=== PATIENT | female | born 1955 | race Caucasian/White ===

== ENCOUNTER → 2018-01-19 14:24 | Outpatient (CLI) | payer OTHER, SELFPAY ==
--- NOTE | 2018-01-19 14:28 | RAD_ITS ---
STUDY: X-RAY - LEFT HAND REASON FOR EXAM: Female, 63 years old. Pain TECHNIQUE: 3 view(s) of the hand. COMPARISON: None. FINDINGS: Normal radiocarpal articulation. Normal distal radioulnar joint. Normal visualized carpal bones. Normal carpal articulations Normal carpometacarpal articulation of the thumb. Normal second through fifth carpometacarpal joints. Normal metacarpi. Normal metacarpophalangeal joint of the thumb. Normal interphalangeal joint of the thumb. Normal proximal and distal phalanges of the thumb. Normal metacarpophalangeal joints of the second through fifth fingers. Normal proximal and distal interphalangeal joints of the second through fifth fingers. Normal phalanges of the second through fifth fingers. The soft tissue structures are unremarkable. RAD/Hand Min 3 Views IMPRESSION: Normal x-ray examination of the hand. Electronically Signed: Lito Waite MD at 21:19 EDT Tel , Service support ,
== END ==
PROVIDERS: Family Provider Family Medicine; PCP Family Medicine; Visit Provider Orthopaedic Surgery
DX: M79.645 Pain in left finger(s) (principal)
CPT/HCPCS: 73130

== ENCOUNTER 2018-04-28 07:47 | Day surgery (SDC) | payer OTHER, SELFPAY ==
[2018-04-28 08:25] VITALS: BP 134/69; PULSE 69; RESP 18; TEMP 36.6; O2SAT 99; BMI 25.4
[2018-04-28] MEDS: Cefazolin 2 GM in 0.9% Normal Saline 100 ML IV (09:18)
--- NOTE | 2018-04-28 09:26 | PCM.DC.ORTHO ---
Discharge Diet: No Restrictions - keep dressing clean and dry, if gets wet- may change/reinforce, follow up in 2 weeks for suture removal/dressing change, may use hand as tolerated Discharge Activity: May Not Drive May shower in (days): 1 Ice area for (Minutes): 20 - Every hour while awake. Weight Bearing Status: Weight bearing as tolerated Keep extremity elevated above heart level: Operative Extremity Call your doctor if your incision/area has: Continuous Slow Oozing, Sudden Increased Bleeding, Increased Pain/ Swelling, Increased Redness, Foul Smelling Discharge Call your doctor if you observe: Fever of 101 or Higher, Coldness, Increased Pain, Numbness or Tingling, Change in Color, Calf discomfort Allergies/Adverse Reactions: Allergies penicillin V Allergy (Verified 04/27/18 13:23) Swelling Sulfa (Sulfonamide Antibiotics) Allergy (Verified 04/27/18 13:23) Rash Medications to take at Discharge lactobacillus combination no.8 3 billion cell capsule 3,000 mmu cells PO QDAY 01/19/18 Multivitamin [Multiple Vitamins] 1 each PO DAILY 04/27/18 Acetaminophen/Codeine #3 [Tylenol #3 Tablet] 1 - 2 tablet PO Q6H PRN PRN 3 Days #14 tablet 04/28/18 The following prescriptions were given: Acetaminophen/Codeine #3 [Tylenol #3 Tablet] 1 - 2 tablet PO Q6H PRN PRN 3 Days #14 tablet PRN Reason: Pain Primary Care Physician: Max Parekh MD [Primary Care Provider] - Please Follow Up With: Rosi Reyes, - [phone]
--- NOTE | 2018-04-28 09:27 | PCM.OPRPT ---
Report of Operation Date of Procedure: 04/28/18 Pre-Operative Diagnosis: left thumb and middle finger trigger fingers Post-Operative Diagnosis: same Surgery/Procedure Performed:: left thumb and middle finger A1 gabe releases Anesthesiologist: Jaydon Patel Estimated Blood Loss (mL): none Fluids Replaced: 400ml lr Description of Procedure: Preop note Patient is a 63-year-old female with continued locking and triggering of her thumb and middle finger. Patient is failed conservative treatment triggering is worse like patient elected to proceed with left thumb and middle A1 gabe release. Risks benefits and alternatives surgery discussed with patient. Risks including but not limited to blood loss, blood clot, infection, neurovascular injury, failure procedure, loss of life and loss of limb. Patient is aware like proceed with left A1 gabe release of the middle and thumb. Operative note Patient seen and examined preoperative holding area. Left thumb and middle finger were marked. Patient brought to the operating room please placed supine on the operating table. Signing, anesthesia, antibiotics were administered. The left arm was prepped and draped after [place] block was initiated. We marked out her incisions for her thumb and middle finger. Gabe release. Timeout was performed. We then used a 15 blade cut through the skin at the crease of the MP joint of the thumb. We were careful to protect all neurovascular structures were able to then dissect down with tenotomy syllable of the A1 gabe this is released and the tendon was brought out of the wound of the thumb was flexed and extended to ensure no further triggering which was there was not. We then moved to the middle finger we then again made our incision which is a vertical incision over the MP joint and the level of the A1 gabe. Dissected down with tenotomy syllable of the A1 gabe gabe was released with a 15 blade and tenotomies we then brought the end tendon out of the incision and flex and extend at the middle finger to ensure there is no triggering which there was no further triggering. We irrigated the incision with copious amounts of sterile saline. The incisions were closed with interrupted 4-0 nylon stitches sterile dressings were applied. The patient tourniquet was deflated for total working time of 20 minutes. The patient tolerated procedure well there are no complications patient was transferred to the recovery room in stable condition. Postoperative note Use left hand as tolerated next Pharmacy has Tylenol prescription If incision gets wet may reinforce dressing as Follow-up in 2 weeks for suture removal Call with concerns as Dragon disclaimer This note was generated with [employer] dictation software. It may contain incorrect words, spelling, and punctuation that were not noted in checking the note before signing.
[2018-04-28] MEDS: Mupirocin Ointment 22gm Tube 1 APPLIC (09:53)
[2018-04-28 10:08] VITALS: BP 105/65; BP 134/69; PULSE 70; RESP 16; TEMP 36.4; O2SAT 98
[2018-04-28 10:15] VITALS: BP 113/70; BP 134/69; PULSE 75; RESP 16; O2SAT 98
[2018-04-28 10:20] VITALS: BP 121/79; BP 134/69; PULSE 78; RESP 14; O2SAT 100
[2018-04-28 10:25] VITALS: BP 116/81; BP 134/69; PULSE 68; RESP 16; TEMP 36.5; O2SAT 98
[2018-04-28 11:09] VITALS: BP 134/69
== END 2018-04-28 11:19 | disposition home or self-care (01) ==
LOC: SDC 07:48 → AC 07:50
PROVIDERS: Family Provider Family Medicine; PCP Family Medicine; Visit Provider Orthopaedic Surgery
PROC: (CPT 26055; principal; 2018-04-28 09:00)
DX: M65.332 Trigger finger, left middle finger (principal); M65.312 Trigger thumb, left thumb
CPT/HCPCS: 01810; 26055 ×2; J7120

== ENCOUNTER → 2020-10-06 15:06 | Outpatient (CLI) | payer OTHER, SELFPAY ==
[2020-10-06 12:48] VITALS: BMI 25.7
== END ==
PROVIDERS: PCP Family Medicine; Visit Provider Physician Assistant Medical
DX: U07.1 COVID-19 (principal)
CPT/HCPCS: 87635; U0003

== ENCOUNTER 2023-09-14 16:38 | Emergency (ER) | payer MEDICARE, SELFPAY ==
[2023-09-14] VITALS (9 sets, daily range): BP systolic 90–118; BP diastolic 49–70; PULSE 84–110; RESP 13–24; TEMP 36.5–37.7; O2SAT 98–100; BMI 26.2
--- NOTE | 2023-09-14 17:36 | EKG12_ITS ---
Test Reason : Blood Pressure : / mmHG Vent. Rate : 100 BPM Atrial Rate : 100 BPM P-R Int : 134 ms QRS Dur : 070 ms QT Int : 350 ms P-R-T Axes : 016 016 028 degrees QTc Int : 451 ms Normal sinus rhythm Low voltage QRS Nonspecific ST abnormality Abnormal ECG Confirmed by EARL GUZMAN, MARIALUISA ([id number]), market editor BUDDY CALZADA ([id number]) on 09/23/2023 10:21:21 AM Referred By: RU/FELICIANO Confirmed By:MARIALUISA ELLIOTT MD
--- NOTE | 2023-09-14 17:38 | EDS_ITS ---
HPI <TEODORO Jiménez - Last Filed: 09/14/23 20:58> History of Present Illness Chief Complaint: General Illness Narrative Narrative: 68-year-old female with no significant past medical history and takes no medications states about 2 weeks ago she developed low-grade fevers and a dry cough. A week into the illness she spiked a fever above 101F and went to urgent care. She had negative COVID/flu swab was told she had a UTI. She had no urinary symptoms. They prescribed Cipro and she is on the last day of the antibiotic. She has an ongoing dry cough and over the last few days remains febrile and feels short of breath. She feels very winded when going up stairs. No chest pain. Last night she had night sweats. No recent weight loss. Triage nurse noted patient with a little yellow and states he did not notice but thought maybe she looked pale. She has no abdominal pain or GI symptoms. PFSH <TEODORO Jiménez - Last Filed: 09/14/23 20:58> [facility] Medical History (Updated 09/14/23 @ 20:58 by TEODORO Jiménez) Chronic neck and back pain Contact with or exposure to other viral diseases Diarrhea Fever UTI (urinary tract infection) Home Medications ibuprofen 200 mg tablet (Advil) 200 mg PO Q6H PRN pain 10/06/20 [History Last Taken Unknown] ciprofloxacin HCl 500 mg tablet 500 mg PO BID #14 tabs 09/08/23 [Rx Last Taken Unknown] Allergy/AdvReac Type Severity Reaction Status Date / Time amoxicillin Allergy Swelling Verified 09/14/23 16:40 penicillin V Allergy Swelling Verified 09/14/23 16:40 Sulfa (Sulfonamide Allergy Rash Verified 09/14/23 16:40 Antibiotics) Family History Mother Hypertension Surgical History (Updated 10/06/20 @ 12:51 by Marielle Dumont) History of bunionectomy History of cholecystectomy Social History (Updated 10/06/20 @ 13:37 by Polly VALERIO, PA) Smoking Status: Never smoker ROS <TEODORO Jiménez - Last Filed: 09/14/23 20:58> ROS ED ROS Narrative Constitutional: Positive for fever, chills, malaise. ENT: Negative for sore throat, ear pain, rhinorrhea. CVS: Negative for palpitations, chest pain, syncope. Respiratory: Positive for shortness of breath, cough. GI: Negative for abdominal pain, nausea, vomiting, diarrhea, constipation, melena, hematochezia. : Negative for dysuria, hematuria or frequency. Neuro: Negative for headache. Skin: Negative for rash. EXAM <TEODORO Jiménez - Last Filed: 09/14/23 20:58> Physical Exam Narrative Exam Narrative: CONST: Patient sitting in no acute distress. EYES: Normal inspection. ENT: Normal inspection, moist mucous membranes. NECK: Normal inspection. RESP: No respiratory distress, CTAB. CVS: Regular rate and rhythm, no murmur, no gallop. ABD: Soft and nontender, no guarding or rebound, nondistended, no hepatosplenomegaly. Back: Normal inspection, no CVA tenderness. SKIN: Patient appears pale and slightly yellow, no rash, warm dry and intact. EXTREMITIES: Normal appearance, no pedal edema. NEURO: Oriented x4. PSYCH: Normal affect. Const Vital Signs: 09/14/23 16:40 09/14/23 17:56 09/14/23 18:47 Temperature 99.8 F H Temperature Source Temporal Pulse Rate 110 H 99 Respiratory Rate 18 24 H Respiratory Effort Normal Non-Labored Respiratory Pattern Normal Blood Pressure 118/55 L 117/65 Blood Pressure Mean 76 82 Blood Pressure Source Blood Pressure Position Blood Pressure Location Pulse Ox 100 98 Oxygen Delivery Method Room Air Room Air Oxygen Flow Rate (L/min) 09/14/23 18:50 09/14/23 20:23 09/14/23 20:30 Temperature 97.7 F L 97.7 F L Temperature Source Temporal Temporal Pulse Rate 93 92 Respiratory Rate 18 17 Respiratory Effort Respiratory Pattern Blood Pressure 90/49 L 93/49 L Blood Pressure Mean 62 63 Blood Pressure Source Monitor Monitor Blood Pressure Position Supine Supine Blood Pressure Location Left Arm Left Arm Pulse Ox 100 100 100 Oxygen Delivery Method Nasal Cannula Nasal Cannula Venturi Mask Oxygen Flow Rate (L/min) 2 2 2 09/14/23 20:44 09/14/23 20:45 09/14/23 23:27 Temperature 97.8 F 97.9 F 98.8 F Temperature Source Temporal Temporal Oral Pulse Rate 91 89 85 Respiratory Rate 16 17 13 Respiratory Effort Respiratory Pattern Blood Pressure 101/52 L 96/57 L 104/66 Blood Pressure Mean 68 70 78 Blood Pressure Source Monitor Monitor Monitor Blood Pressure Position Supine Supine Supine Blood Pressure Location Left Arm Left Arm Left Arm Pulse Ox 100 100 100 Oxygen Delivery Method Nasal Cannula Nasal Cannula Nasal Cannula Oxygen Flow Rate (L/min) 2 2 2 09/14/23 23:38 Temperature 98.2 F Temperature Source Oral Pulse Rate 84 Respiratory Rate 13 Respiratory Effort Respiratory Pattern Blood Pressure 103/70 Blood Pressure Mean 81 Blood Pressure Source Monitor Blood Pressure Position Supine Blood Pressure Location Left Arm Pulse Ox 100 Oxygen Delivery Method Nasal Cannula Oxygen Flow Rate (L/min) 2 <Dr. Hakan Kent, DO - Last Filed: 09/15/23 00:55> Physical Exam Const Vital Signs: 09/14/23 16:40 09/14/23 17:56 09/14/23 18:47 Temperature 99.8 F H Temperature Source Temporal Pulse Rate 110 H 99 Respiratory Rate 18 24 H Respiratory Effort Normal Non-Labored Respiratory Pattern Normal Blood Pressure 118/55 L 117/65 Blood Pressure Mean 76 82 Blood Pressure Source Blood Pressure Position Blood Pressure Location Pulse Ox 100 98 Oxygen Delivery Method Room Air Room Air Oxygen Flow Rate (L/min) 09/14/23 18:50 09/14/23 20:23 09/14/23 20:30 Temperature 97.7 F L 97.7 F L Temperature Source Temporal Temporal Pulse Rate 93 92 Respiratory Rate 18 17 Respiratory Effort Respiratory Pattern Blood Pressure 90/49 L 93/49 L Blood Pressure Mean 62 63 Blood Pressure Source Monitor Monitor Blood Pressure Position Supine Supine Blood Pressure Location Left Arm Left Arm Pulse Ox 100 100 100 Oxygen Delivery Method Nasal Cannula Nasal Cannula Venturi Mask Oxygen Flow Rate (L/min) 2 2 2 09/14/23 20:44 09/14/23 20:45 09/14/23 23:27 Temperature 97.8 F 97.9 F 98.8 F Temperature Source Temporal Temporal Oral Pulse Rate 91 89 85 Respiratory Rate 16 17 13 Respiratory Effort Respiratory Pattern Blood Pressure 101/52 L 96/57 L 104/66 Blood Pressure Mean 68 70 78 Blood Pressure Source Monitor Monitor Monitor Blood Pressure Position Supine Supine Supine Blood Pressure Location Left Arm Left Arm Left Arm Pulse Ox 100 100 100 Oxygen Delivery Method Nasal Cannula Nasal Cannula Nasal Cannula Oxygen Flow Rate (L/min) 2 2 2 09/14/23 23:38 Temperature 98.2 F Temperature Source Oral Pulse Rate 84 Respiratory Rate 13 Respiratory Effort Respiratory Pattern Blood Pressure 103/70 Blood Pressure Mean 81 Blood Pressure Source Monitor Blood Pressure Position Supine Blood Pressure Location Left Arm Pulse Ox 100 Oxygen Delivery Method Nasal Cannula Oxygen Flow Rate (L/min) 2 [facility] <TEODORO Jiménez - Last Filed: 09/14/23 20:58> [facility] Narrative Medical decision making narrative: History gathered from: Patient and Patient has constellation of symptoms including recent fever, shortness of breath, and cough. She is on Cipro for reported UTI from urgent care. She appears well and nontoxic. HR is 110 with otherwise normal vital signs. Temp is 99.8 and she has been febrile at home. She appears pale or slightly jaundiced. She is tachycardic with regular rhythm and the rest of her exam is benign. Labs show pancytopenia?WBC 2.7, H GB 3.2, platelets 42. Last hemoglobin on file was from 2013 when it was normal at 12.9. Hemoccult is pending. Creatinine is 1.05, sodium 133, potassium 3.4. Lactate 2.1. Liver profile and lipase are overall unremarkable. Patient was typed and crossed and ordered 2 units of PRBCs. UA is contaminated but is possible UTI with leukocyte esterase and 10-25 WBCs with 1+ bacteria.COVID/flu is negative and CXR shows slight increased interstitial markings which could be edema or infection. CTA shows cardiomegaly with interstitial edema and trace pericardial effusion and moderate right pleural effusion. Cannot rule out superimposed infection. She was treated with IV Levaquin to cover both pneumonia and urine. CT abdomen/pelvis shows acute sigmoid diverticulitis IV Flagyl was added. Hospitalist recommend talking to heme/onc to see if she can stay here or needs tertiary care. Heme/onc recommended transfer and my attending is speaking to [facility] for transfer. 30 minutes of critical care time was consumed by evaluation patient, treatment and planning, discussion with consultants and transfer. I have personally performed a face to face assessment of the patient and have reviewed the [facility] Note. I performed a substantive portion of the visit including all aspects of the following. My murphy findings include: History is [patient presents with fever and not feeling well for 2 weeks. She was seen in urgent care about a week ago and diagnosed with a UTI and treated with ciprofloxacin. She complains of a cough and continued fever. She feels short of breath with activity and exertion. She denies dysuria or urgency or frequency. Patient also with some lower abdominal discomfort on the left side and pain in her left lower back. No prior history of diverticulitis. Patient has had prior cholecystectomy. She denies recent travel or surgery. No history of PE or DVT. She has not had any chest pain.] Exam is [HEENT-PERRLA, EOMI. Cranial nerves II through XII grossly intact. TMs clear. Mucous membranes moist. No adenopathy. Cardiovascular-tachycardia without murmur or ectopy Lungs-clear to auscultation, chest wall stable without crepitus or subcu emphysema Abdomen-normoactive bowel sounds. Patient has diffuse tenderness to palpation but more to the left upper quadrant and left lower quadrant with some guarding. There is no rebound, rigidity, or peritoneal signs. Extremities-intact ?4, normal range of motion, normal pulses, atraumatic] Medical Decison Making [ ] Other additions or changes: [None] Lab Data Labs: Laboratory Results - last 24 hr 09/14/23 09/14/23 09/14/23 17:53 17:53 18:30 WBC Cancelled 2.7 L Corrected WBC Cancelled RBC Cancelled 0.93 L Hgb Cancelled 3.2 L* Hct Cancelled 10.3 L MCV Cancelled 110.8 H MCH Cancelled 34.4 H MCHC Cancelled 31.1 L RDW Std Deviation Cancelled 117.5 H RDW Coeff of [place] Cancelled 32.1 H Plt Count Cancelled 42 L* MPV Cancelled TNP Immature Gran % (Auto) Cancelled 3.000 H Neut % (Auto) Cancelled 14.7 L Lymph % (Auto) Cancelled 42.1 H [place] % (Auto) Cancelled 39.8 H Eos % (Auto) Cancelled 0.0 Baso % (Auto) Cancelled 0.4 Absolute Neuts (auto) Cancelled 0.4 L Absolute Lymphs (auto) Cancelled 1.12 Total Counted Cancelled Neutrophils % (Manual) Cancelled Band Neutrophils % Cancelled Lymphocytes % (Manual) Cancelled Monocytes % (Manual) Cancelled Eosinophils % (Manual) Cancelled Basophils % (Manual) Cancelled Metamyelocytes % Cancelled Myelocytes % Cancelled Promyelocytes % Cancelled Blast Cells % Cancelled Plasma Cell % (Manual) Cancelled Other Cells % Cancelled Nucleated RBC % Cancelled 0.8 Nucleated RBCs/100 WBC Cancelled Differential Comment Cancelled SEE COMMENTS Diff Path Review Cancelled May foll Hypersegmented Neuts Cancelled Atypical Lymphocytes Cancelled Reactive Lymphocytes Cancelled Smudge Cells Cancelled Toxic Granulation Cancelled Toxic Vacuolation Cancelled Dohle Bodies Cancelled Shawna Rods Cancelled Platelet Estimate Cancelled MKD DEC Plt Morphology Comment Cancelled RBC Morphology Cancelled Cancelled N CHROM Polychromasia Cancelled RARE Hypochromasia Cancelled 1+ Poikilocytosis Cancelled Basophilic Stippling Cancelled Anisocytosis Cancelled 1+ Microcytosis Cancelled Macrocytosis Cancelled 1+ Spherocytes Cancelled Sickle Cells Cancelled Target Cells Cancelled Tear Drop Cells Cancelled Ovalocytes Cancelled RARE Stomatocytes Cancelled [place] Bodies Cancelled [place] Cells Cancelled Bite Cells Cancelled Crenated Cell Cancelled Acanthocytes (Spur) Cancelled RARE Rouleaux Cancelled Schistocytes Cancelled RARE PT INR APTT Fibrinogen Sodium 133 L Potassium 3.4 L Chloride 103 Carbon Dioxide 21.0 Anion Gap 9 BUN 26 H Creatinine 1.05 H Estim Creat Clear Calc 39.43 Est GFR (MDRD) Af Amer 67 Est GFR (MDRD) Non-Af 55 L BUN/Creatinine Ratio 24.8 H Glucose 127 H Lactic Acid 2.1 H* Calcium 8.4 L Total Bilirubin 0.90 Direct Bilirubin 0.46 H AST 13 L ALT 18 Alkaline Phosphatase 63 Total Protein 8.3 H Albumin 3.0 L Globulin 5.3 H Lipase 13 Urine Color Urine Clarity Urine pH Ur Specific Center Line Urine Protein Urine Glucose (UA) Urine Ketones Urine Occult Blood Urine Nitrite Urine Bilirubin Urine Urobilinogen Ur Leukocyte Esterase Urine RBC Urine WBC Ur Squamous Epith Cells Ur Transition Epith Cell Urine Bacteria Hyaline Casts WBC Casts Urine Mucus Blood Type Antibody Screen Crossmatch 09/14/23 09/14/23 09/14/23 18:38 18:40 20:57 WBC Corrected WBC RBC Hgb Hct MCV MCH MCHC RDW Std Deviation RDW Coeff of [place] Plt Count MPV Immature Gran % (Auto) Neut % (Auto) Lymph % (Auto) [place] % (Auto) Eos % (Auto) Baso % (Auto) Absolute Neuts (auto) Absolute Lymphs (auto) Total Counted Neutrophils % (Manual) Band Neutrophils % Lymphocytes % (Manual) Monocytes % (Manual) Eosinophils % (Manual) Basophils % (Manual) Metamyelocytes % Myelocytes % Promyelocytes % Blast Cells % Plasma Cell % (Manual) Other Cells % Nucleated RBC % Nucleated RBCs/100 WBC Differential Comment Diff Path Review Hypersegmented Neuts Atypical Lymphocytes Reactive Lymphocytes Smudge Cells Toxic Granulation Toxic Vacuolation Dohle Bodies Shawna Rods Platelet Estimate Plt Morphology Comment RBC Morphology Polychromasia Hypochromasia Poikilocytosis Basophilic Stippling Anisocytosis Microcytosis Macrocytosis Spherocytes Sickle Cells Target Cells Tear Drop Cells Ovalocytes Stomatocytes [place] Bodies Rina Cells Bite Cells Crenated Cell Acanthocytes (Spur) Rouleaux Schistocytes PT 18.8 H INR 1.6 APTT 35.4 Fibrinogen TNP Sodium Potassium Chloride Carbon Dioxide Anion Gap BUN Creatinine Estim Creat Clear Calc Est GFR (MDRD) Af Amer Est GFR (MDRD) Non-Af BUN/Creatinine Ratio Glucose Lactic Acid Calcium Total Bilirubin Direct Bilirubin AST ALT Alkaline Phosphatase Total Protein Albumin Globulin Lipase Urine Color Yellow Urine Clarity Sl. Cloudy Urine pH 5.0 Ur Specific Center Line 1.020 Urine Protein 30 H Urine Glucose (UA) Normal Urine Ketones Negative Urine Occult Blood Negative Urine Nitrite Negative Urine Bilirubin Negative Urine Urobilinogen Normal Ur Leukocyte Esterase 100 H Urine RBC 0-5 SEEN Urine WBC 10-25 SEEN Ur Squamous Epith Cells 5-10 SEEN Ur Transition Epith Cell 0-5 SEEN Urine Bacteria 1+ Hyaline Casts 5-10 SEEN WBC Casts 0-5 SEEN Urine Mucus 0 SEEN Blood Type A POSITIVE Antibody Screen NEGATIVE Crossmatch See Detail 09/14/23 23:09 WBC Corrected WBC RBC Hgb Hct MCV MCH MCHC RDW Std Deviation RDW Coeff of [place] Plt Count MPV Immature Gran % (Auto) Neut % (Auto) Lymph % (Auto) [place] % (Auto) Eos % (Auto) Baso % (Auto) Absolute Neuts (auto) Absolute Lymphs (auto) Total Counted Neutrophils % (Manual) Band Neutrophils % Lymphocytes % (Manual) Monocytes % (Manual) Eosinophils % (Manual) Basophils % (Manual) Metamyelocytes % Myelocytes % Promyelocytes % Blast Cells % Plasma Cell % (Manual) Other Cells % Nucleated RBC % Nucleated RBCs/100 WBC Differential Comment Diff Path Review Hypersegmented Neuts Atypical Lymphocytes Reactive Lymphocytes Smudge Cells Toxic Granulation Toxic Vacuolation Dohle Bodies Shawna Rods Platelet Estimate Plt Morphology Comment RBC Morphology Polychromasia Hypochromasia Poikilocytosis Basophilic Stippling Anisocytosis Microcytosis Macrocytosis Spherocytes Sickle Cells Target Cells Tear Drop Cells Ovalocytes Stomatocytes [place] Bodies [place] Cells Bite Cells Crenated Cell Acanthocytes (Spur) Rouleaux Schistocytes PT INR APTT Fibrinogen Sodium Potassium Chloride Carbon Dioxide Anion Gap BUN Creatinine Estim Creat Clear Calc Est GFR (MDRD) Af Amer Est GFR (MDRD) Non-Af BUN/Creatinine Ratio Glucose Lactic Acid 1.1 Calcium Total Bilirubin Direct Bilirubin AST ALT Alkaline Phosphatase Total Protein Albumin Globulin Lipase Urine Color Urine Clarity Urine pH Ur Specific Center Line Urine Protein Urine Glucose (UA) Urine Ketones Urine Occult Blood Urine Nitrite Urine Bilirubin Urine Urobilinogen Ur Leukocyte Esterase Urine RBC Urine WBC Ur Squamous Epith Cells Ur Transition Epith Cell Urine Bacteria Hyaline Casts WBC Casts Urine Mucus Blood Type Antibody Screen Crossmatch Radiography Diagnostic Testing: Clinical Impression(s) from Imaging Studies Chest X-Ray 09/14/23 17:59 IMPRESSION: Slight increased initial markings represent edema and/or infection. Electronically Signed: Haile Wiseman MD at 19:07 EST , Abdomen/Pelvis CT 09/14/23 18:16 IMPRESSION: Acute sigmoid diverticulitis. No focal fluid collection or free air. Cannot rule out underlying malignancy. Recommend colonoscopy after acute infection has resolved. Electronically Signed: Haile Wiseman MD at 20:09 EST , Chest CTA 09/14/23 18:21 IMPRESSION: No evidence of acute pulmonary emboli to the segmental level. Cardiomegaly with interstitial edema, trace pericardial effusion and moderate right pleural effusion. Cannot rule out superimposed infection. Electronically Signed: Haile Wiseman MD at 20:11 EST , ED attending interpretation of 1-view chest x-ray shows normal heart size, no evidence of large infiltrate. <Dr. Hakan Kent, DO - Last Filed: 09/15/23 00:55> [facility] Narrative Medical decision making narrative: I have personally performed a face to face assessment of the patient and have reviewed the [facility] Note. I performed a substantive portion of the visit including all aspects of the following. My murphy findings include: History is [patient presents with fever and not feeling well for 2 weeks. She was seen in urgent care about a week ago and diagnosed with a UTI and treated with ciprofloxacin. She complains of a cough and continued fever. She feels short of breath with activity and exertion. She denies dysuria or urgency or frequency. Patient also with some lower abdominal discomfort on the left side and pain in her left lower back. No prior history of diverticulitis. Patient has had prior cholecystectomy. She denies recent travel or surgery. No history of PE or DVT. She has not had any chest pain.] Exam is [HEENT-PERRLA, EOMI. Cranial nerves II through XII grossly intact. TMs clear. Mucous membranes moist. No adenopathy. Cardiovascular-tachycardia without murmur or ectopy Lungs-clear to auscultation, chest wall stable without crepitus or subcu emphysema Abdomen-normoactive bowel sounds. Patient has diffuse tenderness to palpation but more to the left upper quadrant and left lower quadrant with some guarding. There is no rebound, rigidity, or peritoneal signs. Extremities-intact ?4, normal range of motion, normal pulses, atraumatic] Medical Decison Making [ ] Other additions or changes: [None] Lab Data Attestation: I reviewed the patient's lab results. Labs: Laboratory Results - last 24 hr 09/14/23 09/14/23 09/14/23 17:53 17:53 18:30 WBC Cancelled 2.7 L Corrected WBC Cancelled RBC Cancelled 0.93 L Hgb Cancelled 3.2 L* Hct Cancelled 10.3 L MCV Cancelled 110.8 H MCH Cancelled 34.4 H MCHC Cancelled 31.1 L RDW Std Deviation Cancelled 117.5 H RDW Coeff of [place] Cancelled 32.1 H Plt Count Cancelled 42 L* MPV Cancelled TNP Immature Gran % (Auto) Cancelled 3.000 H Neut % (Auto) Cancelled 14.7 L Lymph % (Auto) Cancelled 42.1 H [place] % (Auto) Cancelled 39.8 H Eos % (Auto) Cancelled 0.0 Baso % (Auto) Cancelled 0.4 Absolute Neuts (auto) Cancelled 0.4 L Absolute Lymphs (auto) Cancelled 1.12 Total Counted Cancelled Neutrophils % (Manual) Cancelled Band Neutrophils % Cancelled Lymphocytes % (Manual) Cancelled Monocytes % (Manual) Cancelled Eosinophils % (Manual) Cancelled Basophils % (Manual) Cancelled Metamyelocytes % Cancelled Myelocytes % Cancelled Promyelocytes % Cancelled Blast Cells % Cancelled Plasma Cell % (Manual) Cancelled Other Cells % Cancelled Nucleated RBC % Cancelled 0.8 Nucleated RBCs/100 WBC Cancelled Differential Comment Cancelled SEE COMMENTS Diff Path Review Cancelled May foll Hypersegmented Neuts Cancelled Atypical Lymphocytes Cancelled Reactive Lymphocytes Cancelled Smudge Cells Cancelled Toxic Granulation Cancelled Toxic Vacuolation Cancelled Dohle Bodies Cancelled Shawna Rods Cancelled Platelet Estimate Cancelled MKD DEC Plt Morphology Comment Cancelled RBC Morphology Cancelled Cancelled N CHROM Polychromasia Cancelled RARE Hypochromasia Cancelled 1+ Poikilocytosis Cancelled Basophilic Stippling Cancelled Anisocytosis Cancelled 1+ Microcytosis Cancelled Macrocytosis Cancelled 1+ Spherocytes Cancelled Sickle Cells Cancelled Target Cells Cancelled Tear Drop Cells Cancelled Ovalocytes Cancelled RARE Stomatocytes Cancelled [place] Bodies Cancelled [place] Cells Cancelled Bite Cells Cancelled Crenated Cell Cancelled Acanthocytes (Spur) Cancelled RARE Rouleaux Cancelled Schistocytes Cancelled RARE PT INR APTT Fibrinogen Sodium 133 L Potassium 3.4 L Chloride 103 Carbon Dioxide 21.0 Anion Gap 9 BUN 26 H Creatinine 1.05 H Estim Creat Clear Calc 39.43 Est GFR (MDRD) Af Amer 67 Est GFR (MDRD) Non-Af 55 L BUN/Creatinine Ratio 24.8 H Glucose 127 H Lactic Acid 2.1 H* Calcium 8.4 L Total Bilirubin 0.90 Direct Bilirubin 0.46 H AST 13 L ALT 18 Alkaline Phosphatase 63 Total Protein 8.3 H Albumin 3.0 L Globulin 5.3 H Lipase 13 Urine Color Urine Clarity Urine pH Ur Specific Center Line Urine Protein Urine Glucose (UA) Urine Ketones Urine Occult Blood Urine Nitrite Urine Bilirubin Urine Urobilinogen Ur Leukocyte Esterase Urine RBC Urine WBC Ur Squamous Epith Cells Ur Transition Epith Cell Urine Bacteria Hyaline Casts WBC Casts Urine Mucus Blood Type Antibody Screen Crossmatch 09/14/23 09/14/23 09/14/23 18:38 18:40 20:57 WBC Corrected WBC RBC Hgb Hct MCV MCH MCHC RDW Std Deviation RDW Coeff of [place] Plt Count MPV Immature Gran % (Auto) Neut % (Auto) Lymph % (Auto) [place] % (Auto) Eos % (Auto) Baso % (Auto) Absolute Neuts (auto) Absolute Lymphs (auto) Total Counted Neutrophils % (Manual) Band Neutrophils % Lymphocytes % (Manual) Monocytes % (Manual) Eosinophils % (Manual) Basophils % (Manual) Metamyelocytes % Myelocytes % Promyelocytes % Blast Cells % Plasma Cell % (Manual) Other Cells % Nucleated RBC % Nucleated RBCs/100 WBC Differential Comment Diff Path Review Hypersegmented Neuts Atypical Lymphocytes Reactive Lymphocytes Smudge Cells Toxic Granulation Toxic Vacuolation Dohle Bodies Shawna Rods Platelet Estimate Plt Morphology Comment RBC Morphology Polychromasia Hypochromasia Poikilocytosis Basophilic Stippling Anisocytosis Microcytosis Macrocytosis Spherocytes Sickle Cells Target Cells Tear Drop Cells Ovalocytes Stomatocytes [place] Bodies Rina Cells Bite Cells Crenated Cell Acanthocytes (Spur) Rouleaux Schistocytes PT 18.8 H INR 1.6 APTT 35.4 Fibrinogen TNP Sodium Potassium Chloride Carbon Dioxide Anion Gap BUN Creatinine Estim Creat Clear Calc Est GFR (MDRD) Af Amer Est GFR (MDRD) Non-Af BUN/Creatinine Ratio Glucose Lactic Acid Calcium Total Bilirubin Direct Bilirubin AST ALT Alkaline Phosphatase Total Protein Albumin Globulin Lipase Urine Color Yellow Urine Clarity Sl. Cloudy Urine pH 5.0 Ur Specific Center Line 1.020 Urine Protein 30 H Urine Glucose (UA) Normal Urine Ketones Negative Urine Occult Blood Negative Urine Nitrite Negative Urine Bilirubin Negative Urine Urobilinogen Normal Ur Leukocyte Esterase 100 H Urine RBC 0-5 SEEN Urine WBC 10-25 SEEN Ur Squamous Epith Cells 5-10 SEEN Ur Transition Epith Cell 0-5 SEEN Urine Bacteria 1+ Hyaline Casts 5-10 SEEN WBC Casts 0-5 SEEN Urine Mucus 0 SEEN Blood Type A POSITIVE Antibody Screen NEGATIVE Crossmatch See Detail 09/14/23 23:09 WBC Corrected WBC RBC Hgb Hct MCV MCH MCHC RDW Std Deviation RDW Coeff of [place] Plt Count MPV Immature Gran % (Auto) Neut % (Auto) Lymph % (Auto) [place] % (Auto) Eos % (Auto) Baso % (Auto) Absolute Neuts (auto) Absolute Lymphs (auto) Total Counted Neutrophils % (Manual) Band Neutrophils % Lymphocytes % (Manual) Monocytes % (Manual) Eosinophils % (Manual) Basophils % (Manual) Metamyelocytes % Myelocytes % Promyelocytes % Blast Cells % Plasma Cell % (Manual) Other Cells % Nucleated RBC % Nucleated RBCs/100 WBC Differential Comment Diff Path Review Hypersegmented Neuts Atypical Lymphocytes Reactive Lymphocytes Smudge Cells Toxic Granulation Toxic Vacuolation Dohle Bodies Shawna Rods Platelet Estimate Plt Morphology Comment RBC Morphology Polychromasia Hypochromasia Poikilocytosis Basophilic Stippling Anisocytosis Microcytosis Macrocytosis Spherocytes Sickle Cells Target Cells Tear Drop Cells Ovalocytes Stomatocytes [place] Bodies Rina Cells Bite Cells Crenated Cell Acanthocytes (Spur) Rouleaux Schistocytes PT INR APTT Fibrinogen Sodium Potassium Chloride Carbon Dioxide Anion Gap BUN Creatinine Estim Creat Clear Calc Est GFR (MDRD) Af Amer Est GFR (MDRD) Non-Af BUN/Creatinine Ratio Glucose Lactic Acid 1.1 Calcium Total Bilirubin Direct Bilirubin AST ALT Alkaline Phosphatase Total Protein Albumin Globulin Lipase Urine Color Urine Clarity Urine pH Ur Specific Center Line Urine Protein Urine Glucose (UA) Urine Ketones Urine Occult Blood Urine Nitrite Urine Bilirubin Urine Urobilinogen Ur Leukocyte Esterase Urine RBC Urine WBC Ur Squamous Epith Cells Ur Transition Epith Cell Urine Bacteria Hyaline Casts WBC Casts Urine Mucus Blood Type Antibody Screen Crossmatch Radiography Diagnostic Testing: Clinical Impression(s) from Imaging Studies Chest X-Ray 09/14/23 17:59 IMPRESSION: Slight increased initial markings represent edema and/or infection. Electronically Signed: Haile Wiseman MD at 19:07 EST , Abdomen/Pelvis CT 09/14/23 18:16 IMPRESSION: Acute sigmoid diverticulitis. No focal fluid collection or free air. Cannot rule out underlying malignancy. Recommend colonoscopy after acute infection has resolved. Electronically Signed: Haile Wiseman MD at 20:09 EST , Chest CTA 09/14/23 18:21 IMPRESSION: No evidence of acute pulmonary emboli to the segmental level. Cardiomegaly with interstitial edema, trace pericardial effusion and moderate right pleural effusion. Cannot rule out superimposed infection. Electronically Signed: Haile Wiseman MD at 20:11 EST , EKG Initial EKG: Attestation: I personally reviewed and interpreted this EKG as follows: Comments: Sinus tachycardia with a rate of [address] changes Discharge Plan Triage Chief Complaint: General Illness ED Midlevel Provider: Chula Carrillo ED Provider: Hakan Kent Dx/Rx/DC Orders Clinical Impression: Acute dyspnea, Diverticulitis, Pancytopenia, Pleural effusion, right, Anemia requiring transfusions Prescriptions: No Action ibuprofen [Advil] 200 mg tablet 200 mg PO Q6H PRN (Reason: pain) ciprofloxacin HCl 500 mg tablet 500 mg PO BID Qty: 14 0RF Primary Care Provider: Max Parekh Referrals: Max Parekh MD [Primary Care Provider] -
[2023-09-14] MEDS: 0.9% Normal Saline (1000mL) 1,000 ML 999 ML IV (17:54)
--- NOTE | 2023-09-14 17:59 | RAD_ITS ---
INDICATION: cough EXAMINATION/TECHNIQUE: X-RAY - XR Chest 2 Views COMPARISON: None. FINDINGS: Increased interstitial markings. Tortuous and calcified thoracic aorta. The heart is mildly enlarged. No pleural effusion or pneumothorax. Degenerative changes of the thoracic spine. RAD/Chest PA and Lateral IMPRESSION: Slight increased initial markings represent edema and/or infection. Electronically Signed: Haile Wiseman MD at 19:07 EST ,
--- NOTE | 2023-09-14 18:16 | CT_ITS ---
INDICATION: jaundice, left flank pain EXAMINATION: CT Abdomen And Pelvis W/ Contrast Injection TECHNIQUE: Helically acquired images were obtained of the abdomen and pelvis after IV contrast. A radiation dose optimization technique was used for this scan. IV Contrast dosage and agent: IV 100mL Isovue-370 Oral contrast: None. COMPARISON: None. FINDINGS: Visualized lung bases: Refer to CT chest report same date Liver: Unremarkable Gallbladder: Surgically absent. Spleen: Unremarkable Pancreas: Unremarkable Adrenal Glands: Unremarkable Kidneys: Unremarkable Vasculature: Mild scattered aortoiliac atherosclerotic calcifications. GI Tract: Scattered colonic diverticula. There is short segment circumferential wall thickening of the sigmoid colon with surrounding mesenteric pattern. No focal fluid collection or free air. Lymphadenopathy: None Peritoneum: No ascites. Bladder: Unremarkable Reproductive organs: Unremarkable Bones/Soft tissues: Mild scattered degenerative changes of the visualized spine. CT/Abdomen/Pelvis W IV Cont ONLY IMPRESSION: Acute sigmoid diverticulitis. No focal fluid collection or free air. Cannot rule out underlying malignancy. Recommend colonoscopy after acute infection has resolved. Electronically Signed: Haile Wiseman MD at 20:09 EST ,
--- NOTE | 2023-09-14 18:21 | CT_ITS ---
INDICATION: dyspnea, PE probability high EXAMINATION: CTA Chest WO/W Contrast Injection TECHNIQUE: Helically acquired images were obtained of the chest following administration of IV contrast. A radiation dose optimization technique was used for this scan. 3D postprocessing images including MIPS were reviewed. IV Contrast dosage and agent: IV 100mL Isovue-370 COMPARISON: None. FINDINGS: Lungs: Scattered groundglass opacities. Mild intralobular septal thickening. Mediastinum: The heart is mildly enlarged. Trace pericardial effusion. There is mediastinal lymphadenopathy. The thoracic aorta is unremarkable. No obvious filling defect seen within the visualized pulmonary arteries. Pleura: Moderate right pleural effusion. Bones/Soft tissues: Mild scattered degenerative changes of the visualized spine. Upper abdomen: No visualized abnormalities in the upper abdomen. CT/CTA Chest W/WO Contrast IMPRESSION: No evidence of acute pulmonary emboli to the segmental level. Cardiomegaly with interstitial edema, trace pericardial effusion and moderate right pleural effusion. Cannot rule out superimposed infection. Electronically Signed: Haile Wiseman MD at 20:11 [facility] ,
[2023-09-14 18:23] LABS: AST(SGOT) 13 U/L (15-37); Alanine Aminotransfer ALT/SGPT 18 U/L (13-56); Alkaline Phosphatase 63 U/L (45-117); Bilirubin, Direct 0.46 mg/dL (0.00-0.30); Globulin 5.3 g/dL (2.2-4.2); Protein, Total 8.3 g/dL (6.4-8.2)
[2023-09-14 18:34] LABS: Anion Gap 9 (5-15); BUN 26 mg/dL (7-18); BUN/Creat Ratio 24.8 RATIO (10-20); Calcium,Total 8.4 mg/dL (8.5-10.1); Chloride 103 mmol/L (98-107); Creatinine, Serum 1.05 mg/dL (0.55-1.02); EST Glomerular Filtration Rate 55 mL/min (>60); Est Glom Filt Rate - Afr Amer 67 mL/min (>60); Estimated Creatinine Clearance 39.43 ml/min; Glucose 127 mg/dL (74-106); Lipase 13 U/L (13-75); Potassium 3.4 mmol/L (3.5-5.1); Sodium Level 133 mmol/L (136-145)
[2023-09-14 18:35] LABS: Lactic Acid 2.1 mmol/L (0.4-1.9)
[2023-09-14 18:42] LABS: Mucous, Urine 0 SEEN /hpf (<or=2+)
[2023-09-14 18:44] LABS: Color, Urine Yellow (Yellow); Glucose, Dipstick Normal (Normal); Ketone-Dipstick Negative (Negative); Leukocyte Esterase-Dipstick 100 /ul (Negative); Nitrite-Dipstick Negative (Negative); Occult Blood-Urine Negative /ul (Negative); Protein-Dipstick 30 mg/dl (Negative); Urine Bilirubin Dipstick Negative (Negative); Urine Clarity Sl. Cloudy (Clear); Urine Urobilinogen Normal (Normal)
[2023-09-14 18:45] LABS: Absolute Lymphocyte Count 1.12 X10^3/uL (0.83-4.51); Absolute Neutrophil Count 0.4 X10^3/uL (2.0-7.7); Basophil# 0.01 X10^3/uL; Basophil% 0.4 % (0-1); Hematocrit 10.3 % (37-47); Lymphocyte # 1.12 X10^3/ul (0.83-4.51); Lymphocyte % 42.1 % (19-41); Mean Corp Hgb Conc 31.1 g/dL (32-36); Mean Corpuscular Hgb 34.4 pg (27.0-32.0); Mean Corpuscular Volume 110.8 fL (81-99); Monocyte# 1.06 X10^3/uL; Monocyte% 39.8 % (0-10); NRBC Flagged by Analyzer 0.8 % (0-5); Neutrophil # 0.39 X10^3/uL (2.7-7.7); Neutrophil % 14.7 % (47-70); POSITIVE COUNT YES; POSITIVE DIFFERENTIAL YES; POSITIVE MORPHOLOGY YES; RBC Distribution Width CV 32.1 % (11.6-14.6); Red Blood Count 0.93 M/mm3 (4.2-5.4); White Blood Count 2.7 K/mm3 (4.4-11.0)
--- NOTE | 2023-09-14 18:49 | ED.RN ---
LAB CALLED HEMOGLOBIN REPEAT OF 3.2. DR GUARDADO AWARE
[2023-09-14 18:50] LABS: RBC Distribution Width SD 117.5 fl (35.1-43.9)
[2023-09-14 18:52] LABS: Red Blood Cells-Urine 0-5 SEEN /hpf (0-5); Squamous Epithelial Cells - UA 5-10 SEEN /hpf (5-10); White Blood Cells 10-25 SEEN /hpf (0-5)
[2023-09-14 18:52] LABS: Hemoglobin 3.2 g/dL (12.0-15.0)
[2023-09-14 18:53] LABS: Hyaline Cast 5-10 SEEN /lpf (0-5); Transitional Epithelial - Ur 0-5 SEEN /hpf (0-5)
[2023-09-14 18:53] LABS: Differential Indicated SCAN CRITERIA MET; Platelet Count 42 K/mm3 (150-450)
--- NOTE | 2023-09-14 18:53 | ED.RN ---
LAB CALLED CRITICAL OF PLATELETS OF 42
[2023-09-14 18:54] LABS: White Cell Cast 0-5 SEEN /lpf (None Seen)
[2023-09-14 18:55] LABS: Bacteria 1+ /hpf (None Seen)
[2023-09-14 19:15] LABS: Differential Comment SEE COMMENTS
[2023-09-14 19:16] LABS: Acanthocytes RARE; Anisocytosis 1+; Hypochromasia 1+; Macrocytosis 1+; Ovalocyte RARE; Platelet Estimate MKD DEC (ADEQ); Polychromasia RARE; Red Cell Morphology N CHROM NORMAL (NORM C&C); Schistocytes RARE
[2023-09-14] MEDS: levoFLOXacin IV 750 MG/150 ML BAG 100 MG IV (19:40)
[2023-09-14] MEDS: 0.9% Normal Saline (500mL Bag) 500 ML 999 ML IV (21:06)
[2023-09-14] MEDS: metroNIDAZOLE 500 MG/100 ML BAG 100 MG IV (21:11)
[2023-09-14 21:18] LABS: Partial Thromboplast Time 35.4 Seconds (24.1-36.2)
[2023-09-14 21:29] LABS: International Normalized Ratio 1.6; Prothrombin Time (Protime)PT. 18.8 SECONDS (11.7-14.9)
--- NOTE | 2023-09-14 21:51 | ED.RN ---
PT ACCEPTED [facility] [id number]. [facility] ETA GIVEN 1AM, ASKED TO OUTSOURCE.
[2023-09-14 22:00] LABS: Reflex Lactate? Y
[2023-09-14 23:43] LABS: Lactic Acid 1.1 mmol/L (0.4-1.9)
[2023-09-15 03:15] VITALS: BP 118/73; PULSE 83; RESP 17; TEMP 36.4; O2SAT 99
[2023-09-16 10:06] LABS: Pathologist Review Reviewed
== END 2023-09-15 03:16 | disposition short-term general hospital (02) ==
PROVIDERS: Physician Assistant; Emergency Provider Emergency Medicine; PCP Family Medicine; Visit Provider Emergency Medicine
DX: D61.818 Other pancytopenia (principal); K57.32 Diverticulitis of large intestine without perforation or abscess without bleeding; M54.50 Low back pain, unspecified; J90 Pleural effusion, not elsewhere classified; R06.09 Other forms of dyspnea; N39.0 Urinary tract infection, site not specified; R50.9 Fever, unspecified; R05.9 Cough, unspecified
CPT/HCPCS: 36430; 71046; 71275; 74177; 80048; 80076; 81001; 82274; 83605; 83690; 85025; 85610; 85730; 86850; 86900; 86901; 86920; 86922; 87040; 87086; 87428; 93005; 96361; 96365; 96367; 99285; J7030; J7040; J7050; P9016; Q9967; A4216